=== PATIENT | female | born 1960 | race Asian ===

== ENCOUNTER 2017-08-01 08:00 | Outpatient (CLI) | payer MEDICARE, MEDICAID ==
[2017-08-01 19:30] LABS: CHOL/HDL RATIO 4.9 (<4.4); CHOLESTEROL 242 mg/dL; HDL CHOLESTEROL 49 mg/dL; LDL CHOLESTEROL,CALCULATED 172 mg/dL; LDL/HDL RATIO 3.5 (<4.4); VLDL CHOLESTEROL 21 mg/dL
[2017-08-01 19:47] LABS: HB2 TOTAL 16.3 g/dL; HEMOGLOBIN A1C 0.57 g/dL; HEMOGLOBIN A1C % 5.4 % (4.6-6.2)
== END 2017-08-01 08:01 | disposition home or self-care (01) ==
LOC: LAB.N 08:00
PROVIDERS: ATTEND Nurse Practitioner
DX: E78.5 Hyperlipidemia, unspecified (principal); R53.83 Other fatigue
CPT/HCPCS: 36415; 80061; 83036; 83721

== ENCOUNTER 2018-04-16 20:41 | Outpatient (CLI) | payer MEDICARE, MEDICAID | END 2018-04-16 20:42 | disposition critical access hospital (66) | LOC: EMS 20:41 | PROVIDERS: ATTEND Surgery | DX: J02.9 Acute pharyngitis, unspecified (principal); R05 Cough | CPT/HCPCS: A0425; A0429 ==

== ENCOUNTER 2018-04-16 20:58 | Emergency (ER) | payer MEDICARE, MEDICAID ==
--- NOTE | 2018-04-16 21:04 | ED Physician Documentation ---
PD HPI URI - Stated complaint Stated Complaint: SORE THROAT, COUGH - History obtained from History obtained from: Patient - History of Present Illness Timing - onset: How many weeks ago (1) Timing duration: Weeks (1) Timing details: Gradual onset, Still present Associated symptoms: Fever, Sore throat (the past 2-3 days, increasing), Productive cough (Off was dry initially and has become productive of green yellow and today was having some blood-tinged and with her sputum when coughing hard.), Hemoptysis, Dyspnea. No: NVD, Bilateral edema Contributing factors: No: Sick contact, Travel, COPD / asthma Similar symptoms before: Has not had sx before Recently seen: Not recently seen Review of Systems Constitutional: reports: Fever, Chills, Myalgias, Fatigue Nose: reports: Congestion. denies: Rhinorrhea / runny nose Throat: reports: Sore throat Cardiac: denies: Chest pain / pressure, Palpitations, Pedal edema, Calf pain Respiratory: reports: Dyspnea, Cough GI: reports: Nausea. denies: Abdominal Pain, Vomiting, Diarrhea Skin: denies: Rash, Lesions Musculoskeletal: denies: Extremity swelling Neurologic: reports: Generalized weakness. denies: Focal weakness, Near syncope PD PAST MEDICAL HISTORY - Past Medical History Cardiovascular: None Respiratory: None GI: GERD : None HEENT: None Psych: Depression, Anxiety, Panic attacks - Past Surgical History Past Surgical History: Yes General: Cholecystectomy - Present Medications Home Medications: Ambulatory Orders Medication Instructions Recorded Confirmed FLUoxetine [PROzac] 40 mg ORAL DAILY 10/19/15 04/16/18 clonazePAM [Clonazepam] 1 mg ORAL TID 10/19/15 04/16/18 Albuterol Sulf [Ventolin Hfa 2 puffs INH Q4HR PRN #1 inhaler 04/16/18 Inhaler] Benzonatate [Tessalon Perle] 100 mg PO TID PRN #25 capsule 04/16/18 Dexamethasone [Decadron] 4 mg PO DAILY #5 tablet 04/16/18 Doxycycline Hyclate 100 mg PO BID #20 capsule 04/16/18 guaiFENesin/CODEINE [Robitussin AC] 10 ml PO Q6H PRN #240 udc 04/16/18 - Allergies Allergies/Adverse Reactions: Allergies Allergy/AdvReac Type Severity Reaction Status Date / Time No Known Drug Allergies Allergy Verified 01/28/19 21:06 - Social History Does the pt smoke?: No Smoking Status: Never smoker Does the pt drink ETOH?: No Does the pt have substance abuse?: No - Immunizations Immunizations are current?: Yes PD ED PE NORMAL - Vitals Vital signs reviewed: Yes - General General: Alert and oriented X 3, No acute distress, Well developed/nourished (She has a normal voice without any hoarseness. She does look able to swallow her saliva. There is no drooling.) - HEENT HEENT: Pharynx benign - Neck Neck: Supple, no meningeal sign, No adenopathy - Cardiac Cardiac: RRR, No murmur - Respiratory Respiratory: No: Clear bilaterally (some tightness for breathing. No overt wheeze per se. No coarse sounds. ) - Abdomen Abdomen: Soft, Non tender - Back Back: No CVA TTP - Derm Derm: Normal color, Warm and dry - Extremities Extremities: No tenderness to palpate, Normal ROM s pain, No edema, No calf tenderness / cord - Neuro Neuro: Alert and oriented X 3, No motor deficit, Normal speech Eye Opening: Spontaneous Motor: Obeys Commands Verbal: Oriented GCS Score: 15 Results - Vitals Vitals: Vital Signs - 24 hr 04/16/18 04/16/18 04/16/18 21:02 21:08 21:23 Temperature 36.9 C Heart Rate 85 81 Respiratory 18 17 18 Rate Blood Pressure 138/85 H O2 Saturation 97 98 04/16/18 04/16/18 04/16/18 21:32 21:36 21:42 Temperature Heart Rate 76 83 Respiratory 17 18 17 Rate Blood Pressure O2 Saturation 98 04/16/18 21:56 Temperature Heart Rate 85 Respiratory 17 Rate Blood Pressure 132/84 H O2 Saturation 99 Oxygen O2 Source Room air - Rads (name of study) chest xray Radiology: Prelim report reviewed (left lower mild infiltrate concerning for pneumonia. ), EMP read contemporaneously, See rad report PD MEDICAL DECISION MAKING - ED course Complexity details: re-evaluated patient (feels improved with neb treatment and meds.), considered differential, d/w patient Departure - Departure Disposition: 01 Home, Self Care Clinical Impression: Acute pneumonia Upper respiratory infection Qualifiers: URI type: unspecified URI Qualified Code(s): J06.9 - Acute upper respiratory infection, unspecified Condition: Stable Record reviewed to determine appropriate education?: Yes Instructions: ED Pneumonia Adult Follow-Up: Denise Ruth ARNP [Primary Care Provider] - Prescriptions: Albuterol Sulf [Ventolin Hfa Inhaler] 2 puffs INH Q4HR PRN #1 inhaler PRN Reason: Shortness Of Air/Wheezing Benzonatate [Tessalon Perle] 100 mg PO TID PRN #25 capsule PRN Reason: Cough Dexamethasone [Decadron] 4 mg PO DAILY #5 tablet Doxycycline Hyclate 100 mg PO BID #20 capsule guaiFENesin/CODEINE [Robitussin AC] 10 ml PO Q6H PRN #240 udc PRN Reason: Cough Comments: Drink lots of fluids. Use albuterol inhaler 2 puffs 4 times a day for the next 7-10 days. Use it extra times as needed for wheezing and cough. Decadron steroid for inflammation of the bronchials and throat and take that daily for the next 5 days. For the cough itself he can use Tessalon and cough medicine. Would be concerned for bacterial infection and so I will prescribe doxycycline antibiotic twice daily. Take the above medications as directed and recheck if not improving over the next few days return sooner if worsening. Discharge Date/Time: 04/16/18 22:30
[2018-04-16] MEDS ORDERED: ALBUTEROL NEB 2.5 MG/3 ML INH STA (21:15)
[2018-04-16] MEDS ORDERED: guaiFENesin/CODEINE 5 ML UDC PO STA (21:15)
[2018-04-16] MEDS ORDERED: BENZONATATE 100 MG CAPSULE PO STA (21:15)
[2018-04-16] MEDS ORDERED: DEXAMETHASONE 10 MG/ML VIAL PO STA (21:15)
[2018-04-16] MEDS ORDERED: CHERRY SYRUP 10 ML UDC PO ONE (21:22)
--- NOTE | 2018-04-16 21:51 | XRAY Report ---
Reason: cough for a week; productive/hemoptysis Procedure Date: 04/16/2018 Accession Number: [id number] / [id number] Procedure: XR - Chest 2 View X-Ray CPT Code: 63195 FULL RESULT: EXAM: CHEST RADIOGRAPHY EXAM DATE: 04/16/2018 09:41 PM. CLINICAL HISTORY: Cough for a week; productive/hemoptysis. COMPARISON: CHEST 1 VIEW 10/20/2015 5:27 AM CHEST 2 VIEW PA/LAT 08/07/2015 3:53 PM. TECHNIQUE: 2 views. FINDINGS: Lungs/Pleura: Right apex scarring and pleural thickening appears unchanged. Mild nodular hazy opacities seen in the left base at the lingula concerning for mild pneumonia. No pleural effusion or pneumothorax. Mediastinum: Heart and mediastinal contours are unremarkable. IMPRESSION: Mild nodular hazy opacities seen in the left base at the lingula concerning for mild pneumonia. RADIA
[2018-04-16 21:56] VITALS: BP 132/84
[2018-04-16] MEDS ORDERED: DOXYCYCLINE 100 MG TABLET PO STA (22:13)
== END 2018-04-16 22:30 | disposition home or self-care (01) ==
LOC: EDUNIT# → ED 20:58
DX: J18.9 Pneumonia, unspecified organism (principal); J06.9 Acute upper respiratory infection, unspecified
CPT/HCPCS: 71046; 94640; 94664; 99283; A9270

== ENCOUNTER 2018-10-04 08:00 | Outpatient (CLI) | payer MEDICARE, MEDICAID ==
[2018-10-04 18:55] LABS: BASOPHILS # (AUTO) 0.1 10^3/uL (0.0-0.1); BASOPHILS % (AUTO) 1.1 %; EOSINOPHILS # (AUTO) 0.5 10^3/uL (0.0-0.7); EOSINOPHILS % (AUTO) 8.6 %; HGB - HEMOGLOBIN 13.7 g/dL (12.0-16.0); LYMPHOCYTES # (AUTO) 2.3 10^3/uL (1.5-3.5); LYMPHOCYTES % (AUTO) 36.6 %; MEAN CORPUSCULAR HEMOGLOBIN 28.5 pg (27.0-31.0); MEAN CORPUSCULAR HGB CONC 31.8 g/dL (32.0-36.0); MEAN CORPUSCULAR VOLUME 89.8 fL (81.0-99.0); MONOCYTES # (AUTO) 0.5 10^3/uL (0.0-1.0); NEUTROPHILS # (AUTO) 2.8 10^3/uL (1.5-6.6); NEUTROPHILS % (AUTO) 45.5 %; PLT - PLATELET COUNT 235 10^3/uL (130-450); RED CELL DISTRIBUTION WIDTH 12.9 % (12.0-15.0); WHITE BLOOD COUNT 6.2 x10^3/uL (4.8-10.8)
[2018-10-04 19:18] LABS: ALBUMIN/GLOBULIN RATIO 0.9 (1.0-2.2); BILIRUBIN,TOTAL 0.7 mg/dL (0.2-1.0); CREATININE 0.9 mg/dL (0.4-1.0); TOTAL PROTEIN 8.5 g/dL (6.7-8.2)
== END 2018-10-04 23:59 | disposition home or self-care (01) ==
LOC: LAB.N 08:00
PROVIDERS: ATTEND Psychiatry & Neurology Psychiatry
DX: F32.9 Major depressive disorder, single episode, unspecified (principal); F41.1 Generalized anxiety disorder
CPT/HCPCS: 36415; 80053; 80061; 82947; 83036; 83721; 85025

== ENCOUNTER 2018-12-12 08:00 | Outpatient (CLI) | payer MEDICARE, MEDICAID ==
[2018-12-12 18:56] LABS: CHOL/HDL RATIO 6.2 (<4.4); CHOLESTEROL 277 mg/dL; HDL CHOLESTEROL 45 mg/dL; LDL CHOLESTEROL,CALCULATED 167 mg/dL; LDL/HDL RATIO 3.7 (<4.4); VLDL CHOLESTEROL 65 mg/dL
== END 2018-12-12 23:59 | disposition home or self-care (01) ==
LOC: LAB.N 08:00
PROVIDERS: ATTEND Nurse Practitioner Gerontology
DX: E78.5 Hyperlipidemia, unspecified (principal)
CPT/HCPCS: 36415; 80061; 83721

== ENCOUNTER 2019-07-09 08:00 | Outpatient (CLI) | payer MEDICARE, MEDICAID ==
[2019-07-09 17:24] LABS: CHOL/HDL RATIO 4.3 (<4.4); CHOLESTEROL 168 mg/dL; HDL CHOLESTEROL 39 mg/dL; LDL CHOLESTEROL,CALCULATED 97 mg/dL; LDL/HDL RATIO 2.5 (<4.4); VLDL CHOLESTEROL 32 mg/dL
== END 2019-07-09 23:59 | disposition home or self-care (01) ==
LOC: LAB.WCP 08:00
PROVIDERS: ATTEND Family Medicine
DX: E78.5 Hyperlipidemia, unspecified (principal)
CPT/HCPCS: 36415; 80061; 83721

== ENCOUNTER 2020-04-17 08:00 | Outpatient (CLI) | payer MEDICARE, MEDICAID | END 2020-04-17 23:59 | disposition home or self-care (01) | LOC: LAB.N 08:00 | PROVIDERS: ATTEND Family Medicine | DX: R22.1 Localized swelling, mass and lump, neck (principal) | CPT/HCPCS: 36415; 84439; 84443 ==

== ENCOUNTER 2020-05-09 12:16 | Outpatient (CLI) | payer MEDICARE, MEDICAID ==
--- NOTE | 2020-05-09 15:47 | Ultrasound Report ---
PROCEDURE: Head or Neck Soft Tissue INDICATIONS: NECK MASS. Palpable lung left submandibular region x3 months. TECHNIQUE: Real time scanning was performed of the neck region of interest, with image documentation . COMPARISON: None. FINDINGS: The area of subjective palpable abnormality in the left submandibular region was interrogat ed with a high megahertz linear transducer. This corresponded to 2 small benign-appearing lymph nodes , measuring 3 mm and 4 mm respectively. Imaging of the thyroid demonstrated heterogeneity of the thyroid bilaterally. The right lobe measures 3.5 x 1.4 x 1.4 cm. The left lobe measures 3.7 x 1.4 x 1.4 cm. In the inferior aspect of the left lobe of the thyroid is a small, subcentimeter solid nodule measuri ng 0.7 x 0.3 x 0.7 cm. It is solid, hypoechoic, with smooth margins and no echogenic foci. IMPRESSION: 1. Palpable abnormality corresponds to 2 small benign-appearing lymph nodes in the left submandibular region. 2. Heterogeneous thyroid with 7 mm maximum diameter solid nodule noted in the left lobe. By TiRMONISHA wells, this is a moderately suspicious nodule. However, based on size, no further follow-up is mike warren. Reviewed by: Raul Mendoza MD on 05/09/2020 3:46 PM PST Approved by: Raul Mendoza MD on 05/09/2020 3:46 PM PST Station ID: [id number]
== END 2020-05-09 12:17 | disposition home or self-care (01) ==
LOC: DI 12:16
PROVIDERS: ATTEND Family Medicine
DX: R22.1 Localized swelling, mass and lump, neck (principal); E04.1 Nontoxic single thyroid nodule

== ENCOUNTER 2020-05-25 08:00 | Outpatient (CLI) | payer MEDICARE, MEDICAID ==
[2020-05-25 12:05] LABS: BASOPHILS # (AUTO) 0.1 10^3/uL (0.0-0.1); BASOPHILS % (AUTO) 0.8 %; EOSINOPHILS # (AUTO) 0.3 10^3/uL (0.0-0.7); EOSINOPHILS % (AUTO) 4.2 %; HCT - HEMATOCRIT 41.2 % (37.0-47.0); LYMPHOCYTES # (AUTO) 2.4 10^3/uL (1.5-3.5); MEAN CORPUSCULAR HEMOGLOBIN 30.8 pg (27.0-31.0); MEAN CORPUSCULAR VOLUME 90.5 fL (81.0-99.0); MEAN PLATELET VOLUME 10.9 fL (7.9-10.8); MONOCYTES # (AUTO) 0.6 10^3/uL (0.0-1.0); MONOCYTES % (AUTO) 7.2 %; NEUTROPHILS # (AUTO) 4.2 10^3/uL (1.5-6.6); NEUTROPHILS % (AUTO) 55.5 %; PLT - PLATELET COUNT 221 10^3/uL (130-450); RED BLOOD COUNT 4.55 10^6/uL (4.20-5.40); RED CELL DISTRIBUTION WIDTH 12.1 % (12.0-15.0); WHITE BLOOD COUNT 7.6 x10^3/uL (4.8-10.8)
[2020-05-25 12:08] LABS: ALBUMIN 4.2 g/dL (3.2-5.5); ALKALINE PHOSPHATASE 44 IU/L (42-121); ALT ALANINE AMINOTRANSFERASE 18 IU/L (10-60); AST ASPARTATE AMINOTRANSFERASE 19 IU/L (10-42); BILIRUBIN,TOTAL 0.6 mg/dL (0.2-1.0); BUN - BLOOD UREA NITROGEN 15 mg/dL (6-20); CALCIUM 9.1 mg/dL (8.5-10.3); CARBON DIOXIDE - CO2 28 mmol/L (21-32); CHLORIDE 101 mmol/L (101-111); CHOL/HDL RATIO 4.1 (<4.4); CHOLESTEROL 229 mg/dL; CREATININE 0.8 mg/dL (0.4-1.0); GFR - MDRD 73 (>89); GLUCOSE 113 mg/dL (70-100); HDL CHOLESTEROL 56 mg/dL; LDL CHOLESTEROL,CALCULATED 141 mg/dL; LDL/HDL RATIO 2.5 (<4.4); SODIUM 135 mmol/L (135-145); TOTAL PROTEIN 8.6 g/dL (6.7-8.2); TRIGLYCERIDES 159 mg/dL; VLDL CHOLESTEROL 32 mg/dL
[2020-05-25 12:10] LABS: THYROID STIMULATING HORMONE 11.04 uIU/mL (0.34-5.60)
[2020-05-25 12:49] LABS: FREE T4 (FREE THYROXINE) 0.88 ng/dL (0.58-1.64)
== END 2020-05-25 23:59 | disposition home or self-care (01) ==
LOC: LAB.WCP 08:00
PROVIDERS: ATTEND Nurse Practitioner Family
DX: E78.5 Hyperlipidemia, unspecified (principal); R94.6 Abnormal results of thyroid function studies
CPT/HCPCS: 36415; 80053; 80061; 83721; 84439; 84443; 85025

== ENCOUNTER 2020-06-29 08:00 | Outpatient (CLI) | payer MEDICARE, MEDICAID ==
[2020-06-29 13:04] LABS: THYROID STIMULATING HORMONE 7.93 uIU/mL (0.34-5.60)
[2020-06-29 13:40] LABS: FREE T4 (FREE THYROXINE) 0.86 ng/dL (0.58-1.64)
== END 2020-06-29 23:59 | disposition home or self-care (01) ==
LOC: LAB.WCP 08:00
PROVIDERS: ATTEND Nurse Practitioner Family
DX: R94.6 Abnormal results of thyroid function studies (principal)
CPT/HCPCS: 36415; 84439; 84443

== ENCOUNTER 2020-09-08 08:00 | Outpatient (CLI) | payer MEDICARE, MEDICAID ==
[2020-09-08 12:12] LABS: THYROID STIMULATING HORMONE 6.44 uIU/mL (0.34-5.60)
[2020-09-08 12:47] LABS: FREE T4 (FREE THYROXINE) 1.21 ng/dL (0.58-1.64)
== END 2020-09-08 23:59 | disposition home or self-care (01) ==
LOC: LAB.WCP 08:00
PROVIDERS: ATTEND Nurse Practitioner Family
DX: E03.9 Hypothyroidism, unspecified (principal)
CPT/HCPCS: 36415; 84439; 84443

== ENCOUNTER 2021-06-02 12:11 | Outpatient (CLI) | payer MEDICARE, MEDICAID ==
[2021-06-02 18:19] LABS: BASOPHILS # (AUTO) 0.1 10^3/uL (0.0-0.1); BASOPHILS % (AUTO) 0.9 %; EOSINOPHILS # (AUTO) 0.5 10^3/uL (0.0-0.7); EOSINOPHILS % (AUTO) 5.1 %; HCT - HEMATOCRIT 41.8 % (37.0-47.0); HGB - HEMOGLOBIN 13.9 g/dL (12.0-16.0); LYMPHOCYTES # (AUTO) 2.5 10^3/uL (1.5-3.5); LYMPHOCYTES % (AUTO) 28.5 %; MEAN CORPUSCULAR HEMOGLOBIN 29.8 pg (27.0-31.0); MEAN CORPUSCULAR HGB CONC 33.3 g/dL (32.0-36.0); MEAN CORPUSCULAR VOLUME 89.5 fL (81.0-99.0); MEAN PLATELET VOLUME 11.1 fL (7.9-10.8); MONOCYTES # (AUTO) 0.6 10^3/uL (0.0-1.0); MONOCYTES % (AUTO) 6.4 %; NEUTROPHILS # (AUTO) 5.2 10^3/uL (1.5-6.6); NEUTROPHILS % (AUTO) 58.9 %; PLT - PLATELET COUNT 232 10^3/uL (130-450); RED BLOOD COUNT 4.67 10^6/uL (4.20-5.40); RED CELL DISTRIBUTION WIDTH 12.3 % (12.0-15.0); WHITE BLOOD COUNT 8.8 x10^3/uL (4.8-10.8)
[2021-06-02 18:47] LABS: ALBUMIN 4.1 g/dL (3.2-5.5); ALBUMIN/GLOBULIN RATIO 0.9 (1.0-2.2); ALKALINE PHOSPHATASE 59 IU/L (42-121); ALT ALANINE AMINOTRANSFERASE 24 IU/L (10-60); AST ASPARTATE AMINOTRANSFERASE 23 IU/L (10-42); BILIRUBIN,TOTAL 0.7 mg/dL (0.2-1.0); BUN - BLOOD UREA NITROGEN 14 mg/dL (6-20); CALCIUM 9.2 mg/dL (8.5-10.3); CARBON DIOXIDE - CO2 29 mmol/L (21-32); CHLORIDE 97 mmol/L (101-111); CHOL/HDL RATIO 4.2 (<4.4); CHOLESTEROL 206 mg/dL; CREATININE 0.9 mg/dL (0.4-1.0); GFR - MDRD 63 (>89); GLUCOSE 124 mg/dL (70-100); HDL CHOLESTEROL 49 mg/dL; LDL CHOLESTEROL,CALCULATED 129 mg/dL; LDL/HDL RATIO 2.6 (<4.4); POTASSIUM 3.8 mmol/L (3.5-5.0); SODIUM 136 mmol/L (135-145); TOTAL PROTEIN 8.6 g/dL (6.7-8.2); TRIGLYCERIDES 142 mg/dL; VLDL CHOLESTEROL 28 mg/dL
[2021-06-02 18:48] LABS: THYROID STIMULATING HORMONE 11.67 uIU/mL (0.34-5.60)
[2021-06-02 18:50] LABS: FREE T4 (FREE THYROXINE) 0.91 ng/dL (0.58-1.64)
[2021-06-02 22:09] LABS: ESTIMATED AVERAGE GLUCOSE 114 mg/dL (70-100); HEMOGLOBIN A1c% 5.6 % (4.27-6.07)
== END 2021-06-02 12:12 | disposition home or self-care (01) ==
LOC: LAB.N 12:11
PROVIDERS: ATTEND Physician Assistant
DX: E78.5 Hyperlipidemia, unspecified (principal); R53.83 Other fatigue; Z13.1 Encounter for screening for diabetes mellitus; E03.9 Hypothyroidism, unspecified
CPT/HCPCS: 36415; 80053; 80061; 82274; 83036; 83721; 84439; 84443; 85025

== ENCOUNTER 2021-06-03 12:43 | Outpatient (CLI) | payer MEDICARE, MEDICAID ==
--- NOTE | 2021-06-04 10:12 | Mammography Report ---
BILATERAL DIGITAL SCREENING MAMMOGRAM 3D/2D: 06/03/2021 CLINICAL: Routine screening. Baseline exam. No prior exams were available for comparison. There are scattered fibroglandular elements in both br easts. No significant masses, calcifications, or other findings are seen in either breast. IMPRESSION: NEGATIVE There is no mammographic evidence of malignancy. A 1 year screening mammogram is recommended. This exam was interpreted at Station ID: [id number]. NOTE: For mammograms, a report in lay terms will be sent to the patient. Approximately 15% of breast malignancies will not be visualized mammographically. In the management of a palpable breast mass, a negative mammogram must not discourage biopsy of a clinically suspicious lesion. Electronically Signed By: Parth simpson/liza:06/03/2021 13:19:44 ACR BI-RADS Category 1: Negative 3341F PARENCHYMAL PATTERN: (A) - The breast(s) demonstrate(s) scattered fibroglandular densities. BI-RADS CATEGORY: (1) - 1 RECOMMENDATION: (ANNUAL) - Recommend routine annual screening mammography. [id number] 1 year screening LATERALITY: (B)
== END 2021-06-03 12:44 | disposition home or self-care (01) ==
LOC: DI.N 12:43
DX: Z12.31 Encounter for screening mammogram for malignant neoplasm of breast (principal)

== ENCOUNTER 2021-07-27 11:03 | Outpatient (CLI) | payer MEDICARE, MEDICAID ==
--- NOTE | 2021-07-27 15:30 | Ultrasound Report ---
PROCEDURE: Head or Neck Soft Tissue INDICATIONS: NECK MASS, THYROID NODULE TECHNIQUE: Real time scanning was performed of the neck region of interest, with image documentation . COMPARISON: None. FINDINGS: No soft tissue neck abnormality seen bilaterally A lymph node previously seen in the left inferior pole which previously measured 7 x 3 x 7 mm has resolved and is no longer seen. Normal-appe aring lymph nodes in the neck are present. IMPRESSION: 1. Normal thyroid. 2. Previously seen left thyroid nodule has resolved. Reviewed by: Gianfranco Friend on 07/27/2021 3:29 PM PDT Approved by: Gianfranco Friend on 07/27/2021 3:29 PM PDT Station ID: [id number]
== END 2021-07-27 11:04 | disposition home or self-care (01) ==
LOC: DI 11:03
PROVIDERS: ATTEND Physician Assistant
DX: R22.1 Localized swelling, mass and lump, neck (principal)

== ENCOUNTER 2021-08-12 07:42 | Outpatient (CLI) | payer MEDICARE, MEDICAID ==
[2021-08-12 12:40] LABS: THYROID STIMULATING HORMONE 3.02 uIU/mL (0.34-5.60)
[2021-08-12 12:41] LABS: FREE T3 2.76 pg/mL (2.5-3.9)
[2021-08-12 12:42] LABS: FREE T4 (FREE THYROXINE) 1.08 ng/dL (0.58-1.64)
[2021-08-14 19:07] LABS: THYROGLOBULIN ANTIBODY 419.9 IU/mL (0.0-0.9)
== END 2021-08-12 07:43 | disposition home or self-care (01) ==
LOC: LAB.N 07:42
PROVIDERS: ATTEND Physician Assistant
DX: R94.6 Abnormal results of thyroid function studies (principal)
CPT/HCPCS: 36415; 81599; 84439; 84443; 84481; 86376; 86800

== ENCOUNTER 2021-09-06 10:14 | Outpatient (CLI) | payer MEDICARE, MEDICAID ==
--- NOTE | 2021-09-06 16:15 | XRAY Report ---
PROCEDURE: Knee 3 View BILAT INDICATIONS: BILATERAL KNEE PX TECHNIQUE: 3 views of the bilateral knee(s) were acquired. COMPARISON: None. FINDINGS: Bones: No fractures or dislocations. Left worse than right bilateral medial femoral tibial compartme nt osteoarthritic changes are seen with joint space narrowing and subchondral sclerosis. No suspiciou s bony lesions. Soft tissues: Moderate left suprapatellar joint effusion is noted, small right suprapatellar joint ef fusion is also seen. No suspicious soft tissue calcifications. 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 Modera te left joint effusion and small right joint effusion. No fracture or dislocation. Reviewed by: Jonathan Rae MD on 09/06/2021 4:14 PM PDT Approved by: Jonathan Rae MD on 09/06/2021 4:14 PM PDT Station ID: [id number]
--- NOTE | 2021-09-06 17:17 | XRAY Report ---
PROCEDURE: Chest 2 View X-Ray INDICATIONS: CHRONIC COUGH TECHNIQUE: 2 view(s) of the chest. COMPARISON: 04/16/2018. FINDINGS: Surgical changes and devices: None. Lungs and pleura: No pleural effusions or pneumothorax. Probable mild bibasilar chronic interstitial pulmonary fibrosis, progressive since the prior study. Mediastinum: Mediastinal contours are normal. Heart size is normal. Bones and chest wall: No suspicious bony abnormalities. Soft tissues appear unremarkable. IMPRESSION: Probable mild bibasilar chronic interstitial pulmonary fibrosis. Reviewed by: Raul Mendoza MD on 09/06/2021 5:15 PM PDT Approved by: Raul Mendoza MD on 09/06/2021 5:15 PM PDT Station ID: [id number]
== END 2021-09-06 10:15 | disposition home or self-care (01) ==
LOC: DI.N 10:14
PROVIDERS: ATTEND Physician Assistant
DX: R05.3 Chronic cough (principal); M17.0 Bilateral primary osteoarthritis of knee; M25.461 Effusion, right knee; M25.462 Effusion, left knee; R53.83 Other fatigue; M25.50 Pain in unspecified joint
CPT/HCPCS: 36415; 84550; 85027; 85651; 86140; 86200; 86225; 86430

== ENCOUNTER 2021-09-06 10:19 | Outpatient (CLI) | payer MEDICARE, MEDICAID ==
[2021-09-06 17:18] LABS: HGB - HEMOGLOBIN 14.1 g/dL (12.0-16.0); MEAN CORPUSCULAR VOLUME 90.3 fL (81.0-99.0); MEAN PLATELET VOLUME 11.2 fL (7.9-10.8); RED BLOOD COUNT 4.87 10^6/uL (4.20-5.40); WHITE BLOOD COUNT 9.8 x10^3/uL (4.8-10.8)
[2021-09-06 17:35] LABS: CRP - C-REACTIVE PROTEIN < 1.0 mg/dL (0-1.0); URIC ACID 6.2 mg/dL (2.6-7.2)
[2021-09-06 21:01] LABS: RHEUMATOID FACTOR NEGATIVE (Negative)
[2021-09-07 13:09] LABS: ANTI-DNA (DS) AB QN 1 IU/mL (0-9)
[2021-09-08 21:07] LABS: CYCLIC CITRULLINATED PEP IGG/A 6 units (0-19)
== END 2021-09-06 10:20 | disposition home or self-care (01) ==
LOC: LAB.N 10:19
PROVIDERS: ATTEND Physician Assistant
DX: R53.83 Other fatigue (principal); M25.50 Pain in unspecified joint
CPT/HCPCS: 36415; 84550; 85027; 85651; 86140; 86200; 86225; 86430

== ENCOUNTER 2021-09-24 12:41 | Outpatient (CLI) | payer MEDICARE, MEDICAID | END 2021-09-24 12:42 | disposition left against medical advice (07) | LOC: EMS 12:41 | DX: R05.9 Cough, unspecified (principal); R06.02 Shortness of breath; R09.89 Other specified symptoms and signs involving the circulatory and respiratory systems ==

== ENCOUNTER 2021-10-11 10:22 | Outpatient (CLI) | payer MEDICARE, MEDICAID ==
--- NOTE | 2021-10-11 13:08 | CT Report ---
PROCEDURE: CHEST WO INDICATIONS: PULMONARY DISEASE WITH FIBROSIS TECHNIQUE: Noncontrast 1mm axial images were acquired from the pulmonary apices to the posterior costophrenic an gles. Axial 5 mm soft tissue kernel reconstructions were performed as well as 8 mm axial MIP and cor onal and sagittal 5 mm reformations. For radiation dose reduction, the following was used: automate d exposure control, adjustment of mA and/or kV according to patient size. COMPARISON: Chest radiographs 09/06/2021. Lung bases from CT of the abdomen and pelvis 11/14/2015. FINDINGS: Image quality: Suboptimal due to motion artifact. Images are denoted as (series #/image #). Lymph nodes: No evidence of thoracic lymphadenopathy however evaluation for mediastinal and hilar monse nopathy is limited in the absence of intravenous contrast. A few calcified mediastinal and hilar lymp h nodes are present. Vasculature: Aorta and main pulmonary artery diameters are within normal range. Heart: No pericardial effusion. Lung parenchyma and pleura: Image quality is degraded by motion artifact. There are irregular/linear opacities in both lungs with associated architectural distortion. Reticular opacities are also demons trated bilaterally. Findings are most pronounced in the lung bases. Similar findings were present in the imaged lung bases on the 2016 exam. No definitive honeycombing identified however subtle honeycom mable could potentially be obscured by motion artifact. Evaluation for air trapping cannot be performe d on this non-high resolution protocol exam. No diffuse micronodularity or consolidation demonstrated . Mild nonspecific groundglass opacity at the lung bases. No pleural effusion. Airways: Centrally patent. Areas of traction bronchiectasis are present, for example the right middle lobe and anterior left upper lobe. Chest wall/musculoskeletal: Multilevel degenerative change of the visualized spine. Visualized upper abdomen: Small hiatal hernia. Similar small hypodensity at the right lateral aspect of the liver, nonspecific, potential cyst or hemangioma. Prior cholecystectomy. IMPRESSION: 1. Bilateral pulmonary opacities and fibrotic changes are present, overall nonspecific. Differential diagnosis is broad and includes etiologies such as a possible UIP pattern, NSIP, connective tissue di sease associated interstitial lung disease, hypersensitivity pneumonitis, sarcoidosis, or drug reacti on. Clinical correlation for factors such as exposure history, history of connective tissue disease, medication history and other clinical factors may be helpful. High-resolution protocol chest CT might also be helpful for further evaluation. If not already performed pulmonology consultation may be hel pful to direct further management. 2. Small hiatal hernia. Reviewed by: Parth Salgado MD on 10/11/2021 1:06 PM PDT Approved by: Parth Salgado MD on 10/11/2021 1:06 PM PDT Station ID: [id number]
== END 2021-10-11 10:23 | disposition home or self-care (01) ==
LOC: DI 10:22
PROVIDERS: ATTEND Physician Assistant
DX: J84.178 Other interstitial pulmonary diseases with fibrosis in diseases classified elsewhere (principal); K44.9 Diaphragmatic hernia without obstruction or gangrene